=== PATIENT | male | born 1990 | race Caucasian/White ===

== ENCOUNTER 2019-07-18 22:48 | Emergency (ER) | payer MEDICAID ==
[~2019-07-18] VITALS: Ht 162.6 cm; Wt 72.0 kg
[2019-07-19 02:45] VITALS: BP 122/52
== END 2019-07-19 02:45 | disposition home or self-care (01) ==
LOC: ER 22:51
DX: J06.9 Acute upper respiratory infection, unspecified (principal); M79.10 Myalgia, unspecified site; R11.2 Nausea with vomiting, unspecified
CPT/HCPCS: 87070; 87430; 87804; 99283